=== PATIENT | male | born 2000 | race Caucasian/White ===

== ENCOUNTER 2020-10-21 17:47 | Emergency (ER) | payer BC, OTHER ==
[2020-10-21] MEDS ORDERED: DIPH,PERTUS(ACELL)TETVAC-LF 0.5 ML VIAL IM ONE (19:00)
[2020-10-21] MEDS ORDERED: LIDOCAINE 1% INJ 10MG/ML (20 ML MDV) SQ ONE (19:01)
--- NOTE | 2020-10-21 19:31 | ED ---
General Adult HPI - General Chief complaint: Wound/Laceration Stated complaint: finger lac Time Seen by Provider: 10/21/20 18:38 Source: patient, RN notes reviewed Mode of arrival: ambulatory Limitations: no limitations - History of Present Illness Initial comments: 20-year-old male presents to the emergency room for a chief complaint of laceration. Patient has a laceration to the left index finger. Patient was using a knife [employer] box when he accidentally cut his finger. Patient is unsure on tetanus immunization status. Patient denies any difficulty moving his finger.Patient has no other complaints at this time including shortness of breath, chest pain, abdominal pain, nausea or vomiting, headache, or visual changes. - Related Data Home Medications Medication Instructions Recorded Confirmed No Known Home Medications 04/24/15 04/24/15 Allergies Allergy/AdvReac Type Severity Reaction Status Date / Time No Known Allergies Allergy Verified 10/21/20 17:56 Review of Systems ROS Statement: Those systems with pertinent positive or pertinent negative responses have been documented in the HPI. ROS Other: All systems not noted in ROS Statement are negative. Past Medical History Past Medical History: No Reported History History of Any Multi-Drug Resistant Organisms: None Reported Past Surgical History: No Surgical Hx Reported Past Psychological History: No Psychological Hx Reported Smoking Status: Current every day smoker, Vaper Past Alcohol Use History: None Reported Past Drug Use History: Marijuana General Exam Limitations: no limitations General appearance: alert Head exam: Present: atraumatic Eye exam: Present: normal appearance ENT exam: Present: normal exam, mucous membranes moist Neck exam: Present: normal inspection Respiratory exam: Present: normal lung sounds bilaterally. Absent: respiratory distress Cardiovascular Exam: Present: regular rate, normal rhythm Extremities exam: Present: other (Laceration to the finger pad of the left index finger measuring about 1 cm, full range of motion, no deep structure injury) Neurological exam: Present: alert Course Vital Signs 10/21/20 10/21/20 17:54 20:03 Temperature 98.0 F 97.4 F L Pulse Rate 58 L 83 Respiratory 20 19 Rate Blood Pressure 139/80 149/86 O2 Sat by Pulse 100 94 L Oximetry Procedures - Laceration Laceration #1 Consent Obtained: verbal consent Indication: laceration Site: hand Size (cm): 2 Description: linear Depth: simple, single layer Anesthetic Used: lidocaine 1% Anesthesia Technique: nerve block Amount (mls): 3 Pre-repair: wound explored, irrigated extensively (with saline pressure irrigation), deep structures intact Type of Sutures: nylon Size of Sutures: 5-0 Number of Sutures: 6 Technique: simple, interrupted Patient Tolerated Procedure: well, no complications Medical Decision Making - Medical Decision Making Neurovascular status intact in left index finger. Full range of motion including flexion at the MCP, PIP, and DIP joints. Wound was irrigated thoroughly with saline pressure irrigation. 6 simple interpreted sutures were utilized to approximate wound margins. Bacitracin and dressing was applied. I did review x-ray and I do not see any evidence of fracture or foreign body. Re ading from radiology is still pending. I will follow-up on this. Soft tissue laceration on x-ray reading - Radiology Data Radiology results: image reviewed Disposition Clinical Impression: Laceration Disposition: HOME SELF-CARE Condition: Good Instructions (If sedation given, give patient instructions): Care For Your Stitches (ED), Laceration (ED) Additional Instructions: Please keep the area clean. Apply antibiotic ointment twice daily. Do not submerge it in dirty dishwater. Follow-up with your doctor in one to 2 days for recheck as needed. If you develop any signs of infection such as spreading or streaking redness, drainage, or fever return to the emergency room. Otherwise return in 10 days for suture removal. Is patient prescribed a controlled substance at d/c from ED?: No Referrals: Jovi Valenzuela [STAFF PHYSICIAN] - 1-2 days Time of Disposition: 19:57
[2020-10-21] MEDS ORDERED: BACITRACIN OINT 1 EACH PACKET TOPICAL STA (19:53)
[2020-10-21 20:06] VITALS: BP 149/86; PULSE 83; RESP 19; TEMP 97.4
--- NOTE | 2020-10-21 20:35 | XR ---
PROCEDURE: XR finger LT - 3V DATE AND TIME: 10/21/2020 7:20 PM CLINICAL INDICATION: PHH; lac finger pad, 2nd TECHNIQUE: Department protocol COMPARISON: None FINDINGS: There is no fracture or malalignment. No radiopaque foreign body or soft tissue emphysema. The soft tissues are remarkable for laceration changes surrounding the distal phalanx, most conspicuo us anteriorly. IMPRESSION: Soft tissue laceration.
== END 2020-10-21 20:03 | disposition home or self-care (01) ==
LOC: EC 17:47
DX: S61.211A Laceration without foreign body of left index finger without damage to nail, initial encounter (principal); Z23 Encounter for immunization; F17.290 Nicotine dependence, other tobacco product, uncomplicated; W26.0XXA Contact with knife, initial encounter; Y93.89 Activity, other specified; Y92.009 Unspecified place in unspecified non-institutional (private) residence as the place of occurrence of the external cause
CPT/HCPCS: 73140; 90715; 90471; 12001; 99282; J2001